=== PATIENT | male | born 1950 | race Caucasian/White ===

== ENCOUNTER 2018-04-18 06:05 | Day surgery (SDC) | payer OTHER, BC ==
[2018-04-17 12:06] VITALS: BMI 32.9
[2018-04-18] MEDS ORDERED: BUPIVACAINE HCL/PF 0.5% (5MG/ML) 10 ML VIAL ONE (07:29)
--- NOTE | 2018-04-18 08:04 | HP ---
Satellite [facility] - Chief Complaint Chief Complaint: LEFT KNEE PAIN History Source: Patient - Past Medical History Allergies/Adverse Reactions: Allergies Allergy/AdvReac Type Severity Reaction Status Date / Time No Known Allergies Allergy Verified 04/18/18 06:39 Gastrointestinal: Yes: Irritable Bowel Disease - Current Medications Current Medications: Home Medications Medication Instructions Recorded Allopurinol 300 mg PO DAILY 04/17/18 Atorvastatin Ca [Lipitor] 40 mg PO HS 04/17/18 Losartan Potassium 100 mg PO DAILY 04/17/18 Metoprolol Succinate [Toprol Xl] 25 mg PO DAILY 04/17/18 Omeprazole 20 mg PO DAILY 04/17/18 Satellite Physical Exam - Physical Examination Vital Signs: Vital Signs Period Temp Pulse Resp BP Sys/Yip Pulse Ox Last 24 Hr 97.9 F-97.9 F 84-84 20-20 156-156/101-101 96 Extremities: Other (+ JOINT LINE TENDERNESS) Satellite Impression/Plan - Impression/Plan Impression: INTERNAL DERANGEMENT LEFT KNEE Operative Procedure: ARTHROSCOPY LEFT KNEE Date to be Performed: 04/18/18
[2018-04-18] MEDS ORDERED: PROPOFOL 20 ML ONE (08:05)
[2018-04-18] MEDS ORDERED: ceFAZolin SODIUM 1 GM VIAL ONE (08:20)
[2018-04-18] MEDS ORDERED: BUPIVACAINE HCL/PF 0.5% (5MG/ML) 10 ML VIAL IJ ONE (08:24)
[2018-04-18] MEDS ORDERED: ceFAZolin 2 GRAM PREMIX BAG IVPB ONE (08:24)
[2018-04-18] MEDS ORDERED: DEXAMETHASONE SOD PHOSPHATE 4 MG/1 ML VIAL ONE (08:28)
--- NOTE | 2018-04-18 09:02 | OP ---
Operative Note - Note: Operative Date: 04/18/18 Pre-Operative Diagnosis: left medial meniscus tear Operation: arthroscopy left knee with partial medial meniscectomy Post-Operative Diagnosis: Same as Pre-op Surgeon: Laurent Mtz Anesthesia: General Operative Report Dictated: Yes
[2018-04-18] MEDS ORDERED: ONDANSETRON 4 MG/2 ML VIAL IVPUSH PRN (09:03)
[2018-04-18] MEDS ORDERED: oxyCODONE HCL 5 MG TABLET PO PRN (09:03)
[2018-04-18] MEDS ORDERED: ACETAMINOPHEN 325 MG TABLET (FP) PO PRN (09:03)
[2018-04-18] MEDS ORDERED: LACTATED RINGERS SOLUTION 1,000 ML IV SCH (09:15)
--- NOTE | 2018-04-18 10:29 | SPEC ---
DATE OF OPERATION: 04/18/2018 PREOPERATIVE DIAGNOSIS: Left medial meniscal tear. POSTOPERATIVE DIAGNOSIS: Left medial meniscal tear. PROCEDURE: Arthroscopy left knee with partial medial meniscectomy. SURGICAL ATTENDING: Laurent Mtz MD PIPE LINE GAUGER: No finance assistant. ANESTHESIA: General with LMA. CLOSURE: 4-0 nylon. COMPLICATIONS: None. CONDITION: To recovery room in stable condition. DESCRIPTION OF OPERATIVE PROCEDURE: Patient was taken to the operating room on April 18, 2018. General anesthesia with LMA was administered by the anesthesiologist. The left lower extremity was prepped and draped in the usual sterile fashion. The medial and lateral infrapatellar portal sites were infiltrated with 1% Xylocaine with epinephrine. Both portals were then made with a 15 blade followed by a blunt trocar. The scope was placed in the lateral infrapatellar portal and up into the suprapatellar pouch. The knee was inflated with a cocktail of 10 mL of 1% Xylocaine, 10 mL of 0.5% Marcaine, and 20 mL of arthroscopic saline. This was allowed to sit in the knee for a few minutes to allow the anesthetic to work intraarticularly. The scope was placed in the lateral infrapatellar portal and up into the suprapatellar pouch. The pouch was visualized to be clean. The medial and lateral gutters were visualized to be clean. The undersurface of the patella and trochlea were visualized to be intact. With valgus stress on the knee, the medial compartment was entered. The medial meniscus was visualized, probed, and found to have a complex tear of the posterior horn. This was debrided back to smooth stable meniscal tissue using a meniscal biter and arthroscopic shaver. The medial femoral condyle was run and found to be intact as well as the medial tibial plateau. At 90 degrees, the ACL was visualized, probed, and found to be intact. In the figure 4 position, the lateral compartment was entered. The lateral meniscus was visualized, probed, and found to be intact. The lateral femoral condyle was run and found to be intact as was the lateral tibial plateau. The knee was irrigated with copious amounts of irrigation and then the fluid was drained. The inferomedial portal was closed then with 4-0 nylon. Prior to pulling the trocar from the lateral infrapatellar portal, 20 mL of 0.5% Marcaine was infused into the knee for postoperative analgesia. The trocar was then pulled, and the incision was closed with 4-0 nylon suture. A sterile pressure dressing was applied. Patient awakened from anesthesia and transferred to recovery in stable condition. No complication. Estimated blood loss negligible. Aurora FAJARDO/[id number]
[2018-04-18 11:52] VITALS: BP 145/86; PULSE 75; TEMP 97.9
--- NOTE | 2018-04-21 17:42 | PATH ---
Surgical Pathology Report Patient Name: MONA [facility]. Rec. #: [id number] /Age/Gender: 1950 (Age: 67) / M Account: [id number] Location: [facility] Taken: 04/18/2018 Received: 04/18/2018 Reported: 04/21/2018 Physicians: Laurent Mtz M.D. Specimen(s) Received TISSUE OF LEFT KNEE Clinical History Left knee tear Final Diagnosis KNEE SHAVINGS AND TISSUE, LEFT, ARTHROSCOPY: FRAGMENTS OF CARTILAGE, DENSE FIBROCONNECTIVE TISSUE, ADIPOSE TISSUE, AND REACTIVE SYNOVIUM. Electronically Signed Marie Morse M.D. Gross Description Received in formalin, labeled "left knee tear," is a 4.5 x 4.0 x 0.6 cm. aggregate of javed-yellow soft tissue fragments. A rental sales representative portion is submitted in one cassette. DL/04/18/2018 saudi/04/18/2018
== END 2018-04-18 11:20 | disposition home or self-care (01) ==
LOC: JASU-SURG 06:05
PROVIDERS: ATTEND Orthopaedic Surgery
PROC: 0SBD4ZZ Excision of Left Knee Joint, Percutaneous Endoscopic Approach (ICD-10-PCS; principal; 2018-04-18 08:00)
DX: S83.282A Other tear of lateral meniscus, current injury, left knee, initial encounter (principal)
CPT/HCPCS: 88304-TC; 94760